=== PATIENT | female | born 1995 | race Hispanic/Latino ===

== ENCOUNTER 2017-03-28 06:10 | Emergency (ER) | payer BC, OTHER ==
[2017-03-28] MEDS ORDERED: IPRATROPIUM/ALBUTEROL SULFATE 3 ML SOLUTION IH ONE (06:39)
== END 2017-03-28 07:52 | disposition home or self-care (01) ==
LOC: EDH 06:10
DX: J45.901 Unspecified asthma with (acute) exacerbation (principal)
CPT/HCPCS: 81025; 93005; 94640